=== PATIENT | female | born 2000 | race Caucasian/White ===

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

== ENCOUNTER 2020-06-11 19:48 | Emergency (ER) | payer OTHER ==
[~2020-06-11] VITALS: Ht 144.8 cm; Wt 57.6 kg
[2020-06-11 19:59] VITALS: BP 121/56
--- NOTE | 2020-06-11 20:00 | NUR ---
triaged and waiting in lobby
--- NOTE | 2020-06-11 20:34 | NUR ---
Patient discharged with v/s stable. Written and verbal after care instructions given and explained. Patient alert, oriented and verbalized understanding of instructions. Ambulatory with steady gait. All questions addressed prior to discharge. ID band removed. Patient advised to follow up with PMD. Rx of KEFLEX AND PYRIDUM given. Patient educated on indication of medication including possible reaction and side effects. Opportunity to ask questions provided and answered.
== END 2020-06-11 20:34 | disposition home or self-care (01) ==
LOC: MED 19:48
DX: N39.0 Urinary tract infection, site not specified (principal); M54.5 Low back pain
CPT/HCPCS: 81002; 81025; 99283

== ENCOUNTER 2022-11-08 16:07 | Emergency (ER) | payer BC, OTHER ==
[~2022-11-08] VITALS: Ht 142.2 cm; Wt 64.9 kg
[2022-11-08 17:10] VITALS: BP 115/76
--- NOTE | 2022-11-08 18:51 | NUR ---
PT TAKEN TO ULTRASOUND
[2022-11-08 19:47] LABS: BASOPHILS # (AUTO) 0.1 K/uL (0.00-0.22); BASOPHILS % (AUTO) 0.4 % (0.0-2.0); EOSINOPHILS # (AUTO) 0.2 K/uL (0-0.4); EOSINOPHILS % (AUTO) 1.5 % (0.0-4.0); HEMATOCRIT 36.8 % (36-48); HEMOGLOBIN 12.5 g/dL (12.0-16.0); LYMPHOCYTES # (AUTO) 1.8 K/uL (2.5-16.5); LYMPHOCYTES % (AUTO) 14.4 % (20.5-51.1); MEAN CORPUSCULAR HEMOGLOBIN 29 pg (27-31); MEAN CORPUSCULAR HGB CONC 34 g/dL (33-37); MEAN CORPUSCULAR VOLUME 84.7 fL (80-94); MONOCYTES # (AUTO) 0.5 K/uL (0.8-1.0); MONOCYTES % (AUTO) 4.3 % (1.7-9.3); NEUTROPHILS # (AUTO) 9.8 K/uL (1.8-7.7); NEUTROPHILS % (AUTO) 79.4 % (42.2-75.2); PLATELET COUNT (AUTO) 285 K/uL (140-450); RED BLOOD CELL COUNT(AUTO) 4.35 MIL/uL (4.20-5.40); RED CELL DISTRIBUTION WIDTH 13.4 % (11.6-13.7); WHITE BLOOD COUNT (AUTO) 12.3 K/uL (4.8-10.8)
[2022-11-08 20:08] LABS: ALBUMIN 3.5 g/dL (3.4-5.0); CARBON DIOXIDE 23.8 mmol/L (21-32); CREATININE 0.6 mg/dL (0.6-1.3); POTASSIUM 3.8 mmol/L (3.5-5.1); TOTAL BILIRUBIN 0.2 mg/dL (0.0-1.0)
[2022-11-08 20:26] LABS: APPEARANCE,URINE CLEAR (CLEAR); BILIRUBIN,URINE NEGATIVE (NEGATIVE); BLOOD, URINE NEGATIVE (NEGATIVE); COLOR,URINE YELLOW (YELLOW); LEUKOCYTE ESTERASE ,URINE NEGATIVE (NEGATIVE); NITRITE, URINE NEGATIVE (NEGATIVE); PH,URINE 6.5 (5.0-9.0); UGLUCOSE NEGATIVE (NEGATIVE)
--- NOTE | 2022-11-08 21:51 | NUR ---
PT TO CHAIR
[2022-11-08] MEDS ORDERED: ACETAMINOPHEN EXTRA STRENGTH 500 MG TAB PO ONE (21:55)
[2022-11-08] MEDS ORDERED: ACET-10509 PO (22:00)
--- NOTE | 2022-11-08 22:05 | NUR ---
PT CLEARED FOR D/C BY DR. MCKEON. ALL D/C INSTRUCTIONS PROVIDED BY DR. MCKEON. RX OF TYLENOL PROVIDED.
== END 2022-11-08 22:05 | disposition home or self-care (01) ==
LOC: MED 16:07
DX: O34.82 Maternal care for other abnormalities of pelvic organs, second trimester (principal); N83.202 Unspecified ovarian cyst, left side; Z79.899 Other long term (current) drug therapy; Z3A.15 15 weeks gestation of pregnancy
CPT/HCPCS: 36415; 76805; 80053; 81003; 81025; 84702; 85025; 86900; 86901; 99284; Q0092